=== PATIENT | male | born 1940 | race Caucasian/White ===

== ENCOUNTER 2023-09-07 09:50 | Outpatient (CLI) | payer MEDICARE, BC, SELFPAY ==
[2023-09-07 10:03] VITALS: BP 166/93; PULSE 91; RESP 20; TEMP 36.7; O2SAT 97
--- NOTE | 2023-09-07 10:15 | DI.RAD_ITS ---
Exam(s) XR PAIN CLINIC FLUORO JOINT IN EXAM: XR PAIN CLINIC FLUORO JOINT IN CLINICAL HISTORY: DX: Right knee osteoarthritis TECHNIQUE: 2D and realtime digital imaging was performed. CONTRAST MATERIAL: Refer to procedure report. COMPARISON: No exams were available for comparison FINDINGS: Fluoroscopy was provided for Dr. Arroyo during the performance of a radiofrequency ablation. Please r efer to the procedure report for complete details. Ka,r=5.31 mGy IMPRESSION:
[2023-09-07] MEDS: fentaNYL 100 MCG/2 ML VIAL IVP (10:53)
[2023-09-07] MEDS: Lactated Ringers 500 ML 80 ML IV (10:54)
[2023-09-07] MEDS: Midazolam 2 MG/2 ML VIAL IVP (10:54)
[2023-09-07 11:53] VITALS: BP 140/91; PULSE 80; RESP 16; O2SAT 98
[2023-09-07] MEDS: Lidocaine 2% Multi-Dose 20 ML VIAL IJ (12:12)
[2023-09-07] MEDS: Bupivacaine 0.5% Pres-Free 10 ML VIAL IJ (12:13)
[2023-09-07] MEDS: methylPREDNISolone ACETATE 40 MG/ML VIAL IJ (12:13)
--- NOTE | 2023-09-08 09:10 | PDOC.PAIN_ITS ---
Date of service: 09/07/23 Time of Service: 11:00 Pain Managment Procedure Note Procedure Note Procedure Note: PROCEDURE NOTE BILATERAL GENICULAR NERVE RADIOFREQUENCY ABLATION Date of Service: September 07, 2023 Patient: Donta Godwin Provider: Alin Mendiola DO, MPH Donta Godwin [facility] Bilateral genicular nerve radiofrequency ablation with the AvAllDigitals machine. Pre-operative diagnosis: Pain in left knee M25.562 and Pain in right knee M25.561 Post-operative diagnosis: Same Pre-Procedure Pain: VAS=8/10 Comments: Previous genicular nerve blocks to the Bilateral knee. Due to a cancelation, we had time to complete both sides today as opposed to having him wait for another month to complete the left side. He was game to complete this long procedure. PROCEDURE: 1. Superolateral genicular branch from the vastus lateralis 2. Superomedial genicular branch from the vastus medialis 3. Inferomedial genicular branch from the saphenous nerve 4. Terminal branch of the nerve vastus intermedius Donta was interviewed and the medical record reviewed. There were no medical, pharmacologic, radiographic or other structural contraindications to attempting fluoroscopically guided Left genicular nerve radiofrequency ablation. Risks and potential side effects as well as potential benefit of the procedure were rev iewed with Donta Godwin , and the patient's voiced concerns were addressed. After I believed that the patient was completely informed, the printed consent form was signed. Standard time-out procedure was performed. Donta Godwin was brought into brought to the procedure room and placed on the fluoroscopy table in a comfortable supine position and automated blood pressure cuff and pulse oximeter applied. A grounding pad was placed on the left ankle. The place for needle placement was obtained by manual palpation with radiographic confirmation. The skin entry points for approaching Left superolateral genicular nerve, the superomedial genicular nerve, nerve of the vastus intermedius and the inferomedial genicular was identified under the most advantageous fluoroscopic view and marked. Following thorough Chlorhexadine preparation of the skin and draping, 1% lidocaine infiltration of the skin entry point and subcutaneous tissues was accomplished using a 1.5 25G needle. Next, the 17G 50 mm radiofrequency cannula needle with a 4mm active tip was advanced to os at the location of the specific nerve roots (4) using fluoroscopic guidance. Next, motor testing was performed and no abnormal findings were found. Next, 1 cc of 2% Lidocaine was injected at each site after negative aspiration. The lesion was then created with 80 degrees Celsius for 2 minutes and 30 seconds each. 1/4 cc of Depo-Medrol (40 mg/cc) was then injected at each site followed by 1 cc of 0.5% Bupivacaine as the needle was withdrawn. There was no unusual discomfort expressed by Donta. The needles were withdrawn without difficulty. Donta was observed and was without hemodynamic, neurologic, or allergic reactions.? Fluoroscopic images were digitally archived. The exact procedure was then completed on the right. Donta's vital signs were stable throughout the procedure and were as recorded in the docflowsheet by the nursing staff. If given, dosages of intravenous drugs for anxiolysis and analgesia were documented in MAR. POST PROCEDURE EVALUATION: IMPRESSION: 1. Medication given is documented in the MAR 2. Follow up plan: [facility]onta to contact [facility] as needed. This procedure may be repeated if the patient achieves at least 50% improvement in pain and/or function for at least 6 months. 3. Estimated Blood Loss: <5ml 4. Fluoroscopy time: Documented in the EMR Follow up plans and appointments were discussed with Donta. Post procedure instruction was given as documented in nursing documentation and having met discharge criteria, Donta was [facility] from the [facility]. COMMENTS: No apparent complications. Post-procedure pain: VAS= 3/10. Silva WJ1, Eleni SJ, Lobo JG, Christian JG, Ishmael KAUR, Park PH, Jose Manuel JW. Radiofrequency treatment relieves chronic knee osteoarthritis pain: a double-blind randomized controlled trial. Pain. 2010;152(3):481-7. doi: 10.1016/j.pain.2010.09.029. Marilu S1, Stoney ON2, Suzanne Y3, ?zl?rachel P2, Josh U1, Andres ?m?rl? I. Which one is more effective for the clinical treatment of chronic pain in knee osteoarthritis: radiofrequency neurotomy of the genicular nerves or intra- articular injection? Int J Rheum Dis. 2016 Apr 29. I personally completed the entire procedure. ALIN MENDIOLA DO, MPH ABPM&R - Subspecialty board certification in Pain Medicine [facility] [facility]
== END 2023-09-07 09:51 | disposition home or self-care (01) ==
LOC: PC 09:54
PROVIDERS: Visit Provider Preventive Medicine Occupational Medicine
DX: M25.561 Pain in right knee (principal); M25.562 Pain in left knee
CPT/HCPCS: 00123; 64624; 77002; J1030; J2250; J3010; J3490